=== PATIENT | female | born 1995 | race Caucasian/White ===

== ENCOUNTER 2016-10-16 09:42 | Outpatient (CLI) | payer OTHER ==
--- NOTE | 2016-10-16 11:50 | DIAGNOSTIC IMAGING REPORT ---
PROCEDURE: US OB RE-EVALUATION INDICATION: RE EVAL TECHNIQUE: Baca scale, color, and spectral Doppler images of the second trimester gravid uterus were obtained. COMPARISON: None available FINDINGS: A single living intrauterine is in vertex presentation. There is regular cardiac activity at a rate of 138 beats per minute. The placenta is anterior and away from the internal cervical os. The cervix is closed measuring approximately 3.8 cm in length. The amniotic fluid volume is subjectively normal. GALLO is 11.1 cm which corresponds to about the 40th percentile. Biparietal diameter 8.8 cm at 35 weeks and 5 days Head circumference 31.7 cm of 35 weeks and 4-day Abdominal circumference 32.1 cm at 36 weeks and 0-day Femur length 7 cm at 35 weeks and 0-day Head to abdominal circumference ratio and femur length to abdominal circumference ratios are normal. Estimated weight 2786 g Composite gestational age 35 weeks and 6 days, HUONG 11/14/2016 IMPRESSION: 1. Single living intrauterine with a composite gestational age of 35 weeks and 6 days, HUONG 11/14/2016. 2. Size less than dates by 0 weeks and 2 days.
== END 2016-10-16 23:00 ==
LOC: US SRH 09:42
DX: Z34.93 Encounter for supervision of normal pregnancy, unspecified, third trimester (principal); Z3A.35 35 weeks gestation of pregnancy

== ENCOUNTER 2016-10-20 00:03 | Outpatient (CLI) | payer OTHER | END 2016-10-20 01:20 | disposition home or self-care (01) | LOC: OBC SRH 00:03 → OB SRH 00:06 → OBC SRH 01:20 | PROC: 4A0HXCZ Measurement of Products of Conception, Cardiac Rate, External Approach (ICD-10-PCS; principal; 2016-10-20) | DX: O47.03 False labor before 37 completed weeks of gestation, third trimester (principal); Z3A.36 36 weeks gestation of pregnancy ==

== ENCOUNTER 2016-11-11 23:22 | Inpatient (IN) | payer OTHER ==
[~2016-11-11] VITALS: Ht 165.1 cm; Wt 68.0 kg
[2016-11-12] VITALS (7 sets, daily range): BP systolic 115–137; BP diastolic 70–87
[2016-11-13 00:01] VITALS: BP 125/58
[2016-11-13 03:45] VITALS: BP 118/79
--- NOTE | 2016-11-13 13:05 | Provider's Discharge Care Plan ---
Problem, Goal, Plan Problem List 1. Active labor at term Goals: Improve disease control Instructions: Follow up as needed
--- NOTE | 2016-11-13 13:05 | Provider's Discharge Care Plan ---
Problem, Goal, Plan Problem List 1. Active labor at term Goals: Improve disease control Instructions: Follow up as needed
[2016-11-13 13:21] VITALS: BP 113/69
== END 2016-11-13 15:00 | disposition home or self-care (01) | DRG 560 ==
LOC: OBC SRH 23:22 → OB SRH 23:23 → OBC SRH 23:48 → OB SRH 11-12 21:14
PROVIDERS: ADMIT Obstetrics & Gynecology
PROC: 10E0XZZ Delivery of Products of Conception, External Approach (ICD-10-PCS; principal; 2016-11-11)
DX: O69.81X0 Labor and delivery complicated by cord around neck, without compression, not applicable or unspecified (principal); Z3A.40 40 weeks gestation of pregnancy; Z37.0 Single live birth
CPT/HCPCS: 40011; 83475; 90001; 90074; 90155; 91004; 91162; 91163; 95059